=== PATIENT | male | born 1980 | race Caucasian/White ===

== ENCOUNTER 2020-11-04 13:36 | Emergency (ER) | payer SELFPAY ==
[2020-11-04 13:46] VITALS: BP 122/81; PULSE 71; TEMP 98.3; BMI 24.3
[2020-11-04 15:31] LABS: BASO % 0.5 % (0-2.0); EOS % 3.4 % (0-4.5); HEMATOCRIT 41.3 % (35.4-49); HEMOGLOBIN 14.5 GM/dL (11.7-16.9); LYMPH % 17.8 % (8-40); MCH 31.1 pg (25.7-33.7); MCHC 35.2 g/dl (32.0-35.9); MEAN CELL VOLUME 88.5 fl (80-96); MEAN PLT VOLUME 8.6 fl (7.5-11.1); MONO % 4.5 % (3.8-10.2); NEUT % 73.8 % (42.8-82.8); PLATELET COUNT 249 10^3/uL (134-434); RBC 4.66 M/mm3 (4.00-5.60); RDW 13.2 % (11.9-15.9); WHITE BLOOD COUNT 7.8 K/mm3 (4.0-10.0)
[2020-11-04 15:55] LABS: CHLORIDE 108 mmol/L (98-107); SODIUM 139 mmol/L (136-145)
[2020-11-04 15:57] LABS: ALBUMIN 3.9 g/dl (3.4-5.0); ANION GAP 8 MMOL/L (8-16); CALCIUM 8.8 mg/dL (8.5-10.1); CO2 24 mmol/L (21-32)
[2020-11-04 15:58] LABS: BLOOD UREA NITROGEN 14.8 mg/dL (7-18); GLUCOSE,RANDOM 89 mg/dL (74-106)
[2020-11-04 16:00] LABS: SGOT/AST 24 U/L (15-37); SGPT/ALT 46 U/L (13-61)
[2020-11-04 16:01] LABS: CREATININE 0.8 mg/dL (0.55-1.3)
[2020-11-04 16:02] LABS: BILIRUBIN,TOTAL 0.3 mg/dL (0.2-1); TOT PROT 7.3 g/dl (6.4-8.2)
[2020-11-04 16:03] LABS: ALK PHOS 87 U/L (45-117)
[2020-11-04] MEDS ORDERED: IBUPROFEN 600 MG TABLET (FP) PO ONE ×2 (16:53→16:55)
== END 2020-11-04 17:08 | disposition home or self-care (01) ==
LOC: JER 13:36
DX: R07.89 Other chest pain (principal)
CPT/HCPCS: 36415; 71046-TC-FY; 80053; 84484; 85025; 93005; 93010; 99285-25; C9803; U0003; U0005